=== PATIENT | female | born 1970 | race Caucasian/White ===

== ENCOUNTER 2018-09-25 13:20 | Outpatient (CLI) | payer OTHER ==
--- NOTE | 2018-09-25 15:33 | MMO ---
BILATERAL SCREENING MAMMOGRAM: INDICATIONS: Annual exam. COMPARISON: 06/26/2015 and 11/30/2016 FINDINGS: Again seen are bilateral prepectoral breast implants. The breast parenchyma is heterogeneously dense , which limits the sensitivity of mammography. There are benign appearing calcifications within the right breast. No suspicious mass, cluster of microcalcification, or area of architectural distortion is evident. IMPRESSION: BI-RADS Category 2-Benign. Recommend routine annual mammographic screening. POS: MALIK
== END 2018-09-25 13:21 | disposition home or self-care (01) ==
LOC: SCSMAMMO 13:20
PROVIDERS: ATTEND Family Medicine
DX: Z12.31 Encounter for screening mammogram for malignant neoplasm of breast (principal)
CPT/HCPCS: 77067

== ENCOUNTER 2023-07-14 17:00 | Outpatient (CLI) | payer BC | END 2023-07-14 17:01 | disposition home or self-care (01) | LOC: SLEEPLAB 17:00 | PROVIDERS: ATTEND Nurse Practitioner Family | DX: G47.9 Sleep disorder, unspecified (principal); G47.00 Insomnia, unspecified; G47.61 Periodic limb movement disorder | CPT/HCPCS: 95810 ==